=== PATIENT | female | born 1980 | race Caucasian/White ===

== ENCOUNTER 2023-07-21 18:35 | Emergency (ER) | payer MEDICAID ==
[~2023-07-21] VITALS: Ht 167.6 cm; Wt 115.7 kg
[2023-07-21 19:12] VITALS: BP 157/98; PULSE 80; RESP 18; TEMP 97.9; O2SAT 100
== END 2023-07-21 20:00 | disposition left against medical advice (07) ==
LOC: MED 18:35
DX: J02.9 Acute pharyngitis, unspecified (principal); R50.9 Fever, unspecified; Z53.21 Procedure and treatment not carried out due to patient leaving prior to being seen by health care provider
CPT/HCPCS: 99281